=== PATIENT | female | born 1995 | race Caucasian/White ===

== ENCOUNTER 2020-07-13 11:48 | Emergency (ER) | payer OTHER ==
[2020-07-13 11:54] VITALS: BP 130/91; PULSE 85; TEMP 98.3; BMI 30.2
--- NOTE | 2020-07-13 12:13 | PDOC ---
History of Present Illness - General [place] [facility] [place]: CG TEST Time Seen by Provider: 07/13/20 12:02 History Source: Patient Exam Limitations: No Limitations - History of Present Illness Initial Comments: 07/13/20 12:09 Patient is a 24-year-old female who presents to the ED for a repeat beta-hCG after being seen 2 days ago for lower abdominal pain and . The patient states she was spotting initially 2 days ago but is no longer bleeding. She states she was told her beta-hCG was consistent with early as well as her ultrasound, but to return today for repeat beta-hCG for trending. The patient states that she still has similar suprapubic abdominal pain but denies any new pain. She denies any adnexal pain at this time. She denies any fevers or chills. Past History - Medical History Allergies/Adverse Reactions: Allergies Allergy/AdvReac Type Severity Reaction Status Date / Time iodine Allergy Severe Rash Verified 07/13/20 11:54 COPD: No - Reproductive History Is Patient Now?: No - Psycho-Social/Smoking History Smoking History: Never smoked Have you smoked in the past 12 months: No Information on smoking cessation initiated: Yes - Substance Abuse Hx (Audit-C & DAST Scrn) How often the patient has a drink containing alcohol: Never Score: In Men: 4 or > Positive; In Women: 3 or > Positive: 0 Screen Result (Pos requires Nsg. Audit-10AR): Negative In the last yr the pt used illegal drug/Rx for NonMed reason: No Score: Yes response is considered Positive: 0 Screen Result (Positive result requires Nsg. DAST-10): Negative Review of Systems - Review of Systems Comments:: 07/13/20 12:11 - Review of Systems Able to Perform ROS?: Yes Constitutional: No: Fever, Chills, Loss of Appetite, Night Sweats, Weakness HEENTM: No: Eye Pain, Vision changes, Ear Pain, Throat Pain, Throat Swelling, Mouth Pain, Difficulty Swallowing Respiratory: No: Cough, Shortness of Breath, Wheezing, Sputum Production Cardiac (ROS): No: Chest Pain, Chest Tightness, Palpitations, Irregular Heart Beat, Edema ABD/GI: No: Nausea, Vomiting, Abdominal Pain, Diarrhea; positive: Suprapubic abdominal pain, early ; repeat beta-hCG : No Dysuria, No Hematuria, No Frequency, No Urgency, No Vaginal Discharge/Pain Musculoskeletal: No: Muscle Pain, Back Pain, Joint Pain, Muscle Weakness, Neck Pain Integumentary: No: Lesions, Rash Neurological: No: Headache, Numbness, Tingling, Weakness, Speech Difficulties *Physical Exam - Vital Signs Last Vital Signs Temp Pulse Resp BP Pulse Ox 98.3 F 85 17 130/91 100 07/13/20 11:52 07/13/20 11:52 07/13/20 11:52 07/13/20 11:52 07/13/20 11:52 - Physical Exam 07/13/20 12:11 - Physical Exam General Appearance: Nourished, Appropriately Dressed, No Distress HEENT: EOMI, Normal Voice, Hearing Grossly Normal Neck: Supple, No Lymphadenopathy (R), No Lymphadenopathy (L), No Rigidity, No Decreased range of motion Respiratory/Chest: Lungs Clear, Normal Breath Sounds. No Respiratory Distress, No Accessory Muscle Use Cardiovascular: Regular Rhythm, Regular Rate, S1, S2 Gastrointestinal/Abdominal: Normal Bowel Sounds, Soft. Non-tender, No Guarding, No Rebound, No Rigidity; moderate suprapubic abdominal tenderness to palpation. No rebound, guarding or rigidity. No CVA tenderness bilaterally. Musculoskeletal: Normal Inspection. No Decreased Range of Motion Extremity: Normal Capillary Refill, Normal Inspection Integumentary: Normal Color, Dry. 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 Plan: -Beta-hCG quantitative ordered -Will reassess 07/13/20 14:14 The patient has been made aware that her beta hCG has doubled appropriately over 2 days. She has been made aware that this is normal and she should follow-up with [facility] for further evaluation and treatment. She will be referred to OB and states she has not made a follow-up appointment after being seen 2 days ago. She understands and agrees with this treatment plan has been given strict return precautions. She is stable for discharge. Discharge - Discharge Information Problems reviewed: Yes Clinical Impression/Diagnosis: Abdominal pain affecting Condition: Stable Disposition: HOME - Follow up/Referral Referrals: Claudia Huerta MD [Staff Physician] - 2 Days - Patient Discharge Instructions Patient Printed Discharge Instructions: DI for Abdominal Pain -- Early Additional Instructions: Get plenty of rest and drink plenty of fluids. Avoid any strenuous activity. Avoid anything in the vagina including sexual intercourse, tampons, douches or anything else. Be sure to follow-up with [facility] for further evaluation and treatment. Return to the emergency department for worsening abdominal pain vaginal bleeding, dizziness, visual changes or any other worsening symptoms. - Post Discharge Activity Work/Back to School Note: Back to Work
== END 2020-07-13 14:40 | disposition home or self-care (01) ==
LOC: JERFT 11:48
DX: O26.899 Other specified pregnancy related conditions, unspecified trimester (principal)
CPT/HCPCS: 36415; 84702; 99282-25

== ENCOUNTER 2021-02-20 14:27 | Inpatient (IN) | payer OTHER ==
[2021-02-20] MEDS ORDERED: LABETALOL HCL 5 MG/1 ML (100MG/20 ML VIAL) IVPB ONE (15:21)
[2021-02-20] MEDS ORDERED: METOCLOPRAMIDE HCL INJECTION 10 MG/2 ML VIAL IVPUSH ONE (15:24)
[2021-02-20] MEDS ORDERED: CITRIC ACID/SODIUM CITRATE 30 ML UNIT-DOSE CUP PO ONE (15:24)
[2021-02-20] MEDS ORDERED: ELECTROLYTE-148 SOLN 1,000 ML IV SCH (15:30)
[2021-02-20] MEDS ORDERED: MAGNESIUM 4GM/H20 - 4 GM/100 ML IVPB IVPB SCH (15:30)
[2021-02-20] MEDS ORDERED: MAGNESIUM SULFATE 20GM/500ML - 20 GM/500 ML INFUS.BAG IV SCH (15:30)
[2021-02-20 15:39] VITALS: BMI 34.7
[2021-02-20 15:45] LABS: BASO % 0.4 % (0-2.0); EOS % 1.1 % (0-4.5); HEMATOCRIT 33.4 % (32.4-45.2); HEMOGLOBIN 11.5 GM/dL (10.7-15.3); LYMPH % 25.6 % (8-40); MCH 31.1 pg (25.7-33.7); MCHC 34.5 g/dl (32.0-36.0); MEAN CELL VOLUME 90.1 fl (80-96); MEAN PLT VOLUME 8.2 fl (7.5-11.1); MONO % 5.7 % (3.8-10.2); NEUT % 67.2 % (42.8-82.8); PLATELET COUNT 338 K/MM3 (134-434); RBC 3.71 M/mm3 (3.60-5.2); RDW 13.5 % (11.6-15.6); RETICULOCYTES 1.96 % (0.5-1.5); WHITE BLOOD COUNT 9.2 K/mm3 (4.0-10.0)
[2021-02-20 16:05] LABS: EPI CELLS >36 /uL (0-25.1); HYALINE CASTS 1 /uL (0-3.1); PH,URINE 7.5 (5.0-8.0); URINE APPEARANCE CLEAR; URINE BACTERIA 1934 /uL (0-1359); URINE BILIRUBIN NEGATIVE (NEGATIVE); URINE COLOR YELLOW; URINE GLUCOSE (UA) NEGATIVE (NEGATIVE); URINE KETONE NEGATIVE (NEGATIVE); URINE LEUK ESTERASE 1+ (NEGATIVE); URINE NITRITE NEGATIVE (NEGATIVE); URINE PROTEIN NEGATIVE (NEGATIVE); URINE RBC 5 /uL (0-23.9); URINE UROBILINOGEN 0.2 mg/dL (0.2-1.0); URINE WBC 79 /uL (0-25.8)
[2021-02-20 16:11] LABS: CALCIUM 9.1 mg/dL (8.5-10.1); INR 0.83 (0.83-1.09); PROTHROMBIN TIME (PATIENT) 10.3 SEC (9.7-13.0)
[2021-02-20 16:13] LABS: BLOOD UREA NITROGEN 7.1 mg/dL (7-18)
[2021-02-20 16:14] LABS: ACTIVATED PTT 26.4 SECONDS (25.2-36.5)
[2021-02-20 16:15] LABS: URIC ACID 3.5 mg/dL (2.6-7.2)
[2021-02-20 16:16] LABS: CREATININE 0.7 mg/dL (0.55-1.3)
[2021-02-20 16:37] LABS: SYPHILIS W/ RPR CONF NON-REACTIVE (NONREACTIVE)
[2021-02-20] MEDS ORDERED: NALOXONE HCL 0.4 MG/ML VIAL IVPUSH PRN (16:47)
[2021-02-20] MEDS ORDERED: PHENYLEPHRINE HCL 10 MG/1 ML SINGLE DOSE VIAL ONE (17:00)
[2021-02-20] MEDS ORDERED: FENTANYL/BUPIVACAINE/NS/PF - PCEA - 50 ML DISP.SYRIN EP SCH (17:00)
[2021-02-20] MEDS ORDERED: morphine SULFATE/PF 0.5 MG/ML (2cc Syringe - QUVA) ONE (17:00)
[2021-02-20 17:06] LABS: HIV INTERPRETATION NEGATIVE (NEGATIVE)
[2021-02-20] MEDS ORDERED: ONDANSETRON 4 MG/2 ML VIAL ONE (17:34)
[2021-02-20] MEDS ORDERED: ceFAZolin SODIUM 1 GM VIAL ONE (17:34)
[2021-02-20] MEDS ORDERED: KETOROLAC TROMETHAMINE 30 MG/1 ML VIAL ONE (18:07)
[2021-02-20] MEDS ORDERED: ONDANSETRON 4 MG/2 ML VIAL IVPUSH PRN (18:11)
[2021-02-20] MEDS ORDERED: WITCH HAZEL 50% (TUCKS) 40 PAD/JAR PAD TP PRN (18:19)
[2021-02-20] MEDS ORDERED: BENZOCAINE 28 GM HEMORRHOIDAL OINTMENT PR PRN (18:19)
[2021-02-20] MEDS ORDERED: IBUPROFEN 800 MG/8 ML IJ IVPB PRN (18:19)
[2021-02-20] MEDS ORDERED: BENZOCAINE 20% 57 GM BOTTLE TP PRN (18:19)
[2021-02-20] MEDS ORDERED: oxyCODONE HCL 5 MG TABLET PO PRN (18:19)
[2021-02-20] MEDS ORDERED: METHYLERGONOVINE MALEATE 0.2 MG/1 ML AMP IM PRN (18:19)
[2021-02-20] MEDS ORDERED: LABETALOL HCL 200 MG TABLET (FP) PO PRN (18:21)
[2021-02-20] MEDS ORDERED: LABETALOL HCL 5 MG/1 ML (100MG/20 ML VIAL) IVPUSH ONE (18:23)
[2021-02-20] MEDS ORDERED: OXYTOCIN 20 UNITS in 0.9% NS 20 UNIT/1,000 ML INFUS.BAG IV SCH (18:30)
[2021-02-20] MEDS ORDERED: DEXTROSE 5%-LACTATED RINGERS 1,000 ML IV SCH (18:30)
[2021-02-20] MEDS ORDERED: OXYTOCIN 20 UNITS in 0.9% NS 20 UNIT/1,000 ML INFUS.BAG IV ONE (18:32)
[2021-02-20 18:59] LABS: CORD HCO3 25.7 mmHg (20-29); CORD pH 7.265 (7.14-7.44)
[2021-02-20 19:00] LABS: CORD BASE EXCESS 0.6 mmol/L (0-2); CORD HCO3 26.2 mmHg (20-29); CORD PCO2 45.4 mmHg (30-78); CORD pH 7.379 (7.14-7.44)
[2021-02-20] MEDS ORDERED: MAGNESIUM SULFATE 20GM/500ML - 20 GM/500 ML INFUS.BAG ONE (19:23)
[2021-02-20] MEDS: LABETALOL HCL 200 MG TABLET (FP) PO PRN (20:10)
[2021-02-20] MEDS ORDERED: IBUPROFEN 800 MG/8 ML IJ IVPB ONE (21:10)
[2021-02-21] MEDS ORDERED: CEFAZOLIN 1 GM/D5W 1 GM/50 ML BAG ONE ×2 (01:04→09:23)
[2021-02-21] MEDS: CEFAZOLIN 1 GM/D5W 1 GM/50 ML BAG IVPB SCH ×3 (01:30→16:39)
[2021-02-21] MEDS ORDERED: LABETALOL HCL 200 MG TABLET (FP) ONE (01:58)
[2021-02-21] MEDS: LABETALOL HCL 200 MG TABLET (FP) PO PRN (02:05)
[2021-02-21] MEDS: NIFEdipine E.R. 30 MG TABLET PO SCH ×2 (02:30→10:05)
[2021-02-21] MEDS ORDERED: NIFEdipine E.R. 30 MG TABLET ONE ×2 (02:37→09:23)
[2021-02-21] MEDS ORDERED: OXYTOCIN 20 UNITS in 0.9% NS 20 UNIT/1,000 ML INFUS.BAG IV SCH (08:45)
[2021-02-21 08:54] LABS: BASO % 0.3 % (0-2.0); EOS % 0.7 % (0-4.5); HEMOGLOBIN 8.2 GM/dL (10.7-15.3); LYMPH % 22.3 % (8-40); MCH 31.8 pg (25.7-33.7); MCHC 35.9 g/dl (32.0-36.0); MEAN CELL VOLUME 88.6 fl (80-96); MEAN PLT VOLUME 7.7 fl (7.5-11.1); MONO % 6.3 % (3.8-10.2); NEUT % 70.4 % (42.8-82.8); PLATELET COUNT 246 K/MM3 (134-434); RDW 13.5 % (11.6-15.6); WHITE BLOOD COUNT 9.2 K/mm3 (4.0-10.0)
[2021-02-21] MEDS: ENOXAPARIN NA (PORCINE) 40 MG/0.4 ML DISP.SYRIN SQ SCH (10:05)
[2021-02-21] MEDS ORDERED: oxyCODONE HCL 5 MG TABLET ONE (11:36)
[2021-02-21] MEDS ORDERED: ACETAMINOPHEN 325 MG TABLET (FP) ONE (11:36)
[2021-02-21] MEDS: ACETAMINOPHEN 325 MG TABLET (FP) PO PRN ×3 (11:40→20:42)
[2021-02-21] MEDS: oxyCODONE HCL 5 MG TABLET PO PRN (11:40)
[2021-02-21] MEDS: IBUPROFEN 600 MG TABLET (FP) PO PRN ×2 (16:39→20:41)
[2021-02-21] MEDS: SIMETHICONE 80 MG TAB.CHEW (FP) PO PRN ×2 (16:39→20:41)
[2021-02-21] MEDS: diphenhydrAMINE HCL 25 MG CAPSULE (FP) PO PRN (23:09)
[2021-02-22] MEDS: FERROUS SO4 325 MG TABLET (FP) PO SCH ×3 (01:29→21:17)
[2021-02-22] MEDS: IBUPROFEN 600 MG TABLET (FP) PO PRN ×3 (06:43→16:46)
[2021-02-22] MEDS: SIMETHICONE 80 MG TAB.CHEW (FP) PO PRN ×3 (06:43→16:46)
[2021-02-22] MEDS: ACETAMINOPHEN 325 MG TABLET (FP) PO PRN ×3 (06:44→16:46)
[2021-02-22] MEDS: ENOXAPARIN NA (PORCINE) 40 MG/0.4 ML DISP.SYRIN SQ SCH (09:42)
[2021-02-22] MEDS: PRENATAL VITAMINS W/ FOLIC ACID TABLET (FP) PO SCH (09:43)
[2021-02-22] MEDS: NIFEdipine E.R. 30 MG TABLET PO SCH (09:43)
[2021-02-22] MEDS: BISACODYL 10 MG SUPP.RECT PR PRN (09:43)
[2021-02-22 09:57] LABS: HEMATOCRIT 23.1 % (32.4-45.2); HEMOGLOBIN 8.1 GM/dL (10.7-15.3); MCH 31.5 pg (25.7-33.7); MCHC 34.9 g/dl (32.0-36.0); MEAN CELL VOLUME 90.2 fl (80-96); MEAN PLT VOLUME 7.5 fl (7.5-11.1); PLATELET COUNT 279 K/MM3 (134-434); RBC 2.56 M/mm3 (3.60-5.2); RDW 13.7 % (11.6-15.6); WHITE BLOOD COUNT 9.2 K/mm3 (4.0-10.0)
[2021-02-22] MEDS: LABETALOL HCL 200 MG TABLET (FP) PO PRN (18:05)
[2021-02-22] MEDS: oxyCODONE HCL 5 MG TABLET PO PRN (18:26)
[2021-02-23] MEDS: ACETAMINOPHEN 325 MG TABLET (FP) PO PRN ×2 (00:51→19:30)
[2021-02-23] MEDS: diphenhydrAMINE HCL 25 MG CAPSULE (FP) PO PRN (00:58)
[2021-02-23] MEDS: oxyCODONE HCL 5 MG TABLET PO PRN ×4 (01:51→19:31)
[2021-02-23 08:37] LABS: BASO % 0.4 % (0-2.0); EOS % 2.2 % (0-4.5); HEMATOCRIT 22.3 % (32.4-45.2); HEMOGLOBIN 7.9 GM/dL (10.7-15.3); LYMPH % 29.8 % (8-40); MCH 31.6 pg (25.7-33.7); MCHC 35.5 g/dl (32.0-36.0); MEAN CELL VOLUME 88.9 fl (80-96); MEAN PLT VOLUME 7.1 fl (7.5-11.1); MONO % 5.3 % (3.8-10.2); NEUT % 62.3 % (42.8-82.8); PLATELET COUNT 285 K/MM3 (134-434); RBC 2.51 M/mm3 (3.60-5.2); RDW 13.7 % (11.6-15.6); WHITE BLOOD COUNT 7.1 K/mm3 (4.0-10.0)
[2021-02-23] MEDS: ENOXAPARIN NA (PORCINE) 40 MG/0.4 ML DISP.SYRIN SQ SCH (09:28)
[2021-02-23] MEDS: LABETALOL HCL 200 MG TABLET (FP) PO PRN ×2 (09:29→16:17)
[2021-02-23] MEDS: SIMETHICONE 80 MG TAB.CHEW (FP) PO PRN ×3 (09:29→19:30)
[2021-02-23] MEDS: FERROUS SO4 325 MG TABLET (FP) PO SCH ×2 (09:29→21:41)
[2021-02-23] MEDS: NIFEdipine E.R. 30 MG TABLET PO SCH (09:29)
[2021-02-23] MEDS: PRENATAL VITAMINS W/ FOLIC ACID TABLET (FP) PO SCH (09:42)
[2021-02-23] MEDS: SENNOSIDES/DOCUSATE COMBO (SENNA PLUS) TABLET (UD) PO PRN (21:41)
[2021-02-24] MEDS: SIMETHICONE 80 MG TAB.CHEW (FP) PO PRN ×2 (01:36→20:53)
[2021-02-24] MEDS: ACETAMINOPHEN 325 MG TABLET (FP) PO PRN ×3 (01:36→17:46)
[2021-02-24] MEDS: oxyCODONE HCL 5 MG TABLET PO PRN ×2 (01:37→20:51)
[2021-02-24] MEDS: BISACODYL 10 MG SUPP.RECT PR PRN (09:27)
[2021-02-24] MEDS: PRENATAL VITAMINS W/ FOLIC ACID TABLET (FP) PO SCH (09:28)
[2021-02-24] MEDS: FERROUS SO4 325 MG TABLET (FP) PO SCH ×2 (09:28→21:12)
[2021-02-24] MEDS: NIFEdipine E.R. 30 MG TABLET PO SCH (09:28)
[2021-02-24] MEDS: IBUPROFEN 600 MG TABLET (FP) PO PRN ×2 (09:28→20:52)
[2021-02-24] MEDS: ENOXAPARIN NA (PORCINE) 40 MG/0.4 ML DISP.SYRIN SQ SCH (09:29)
[2021-02-24] MEDS: SENNOSIDES/DOCUSATE COMBO (SENNA PLUS) TABLET (UD) PO PRN (20:51)
[2021-02-25 06:24] VITALS: TEMP 98.3
[2021-02-25 06:41] LABS: BASO % 0.7 % (0-2.0); EOS % 3.3 % (0-4.5); HEMOGLOBIN 8.6 GM/dL (10.7-15.3); LYMPH % 31.9 % (8-40); MCH 31.2 pg (25.7-33.7); MCHC 34.3 g/dl (32.0-36.0); MEAN CELL VOLUME 90.8 fl (80-96); MEAN PLT VOLUME 7.1 fl (7.5-11.1); MONO % 6.5 % (3.8-10.2); NEUT % 57.6 % (42.8-82.8); PLATELET COUNT 341 K/MM3 (134-434); RBC 2.75 M/mm3 (3.60-5.2); RDW 13.5 % (11.6-15.6); WHITE BLOOD COUNT 6.4 K/mm3 (4.0-10.0)
[2021-02-25 07:18] VITALS: BP 137/98; PULSE 75
[2021-02-25] MEDS: ENOXAPARIN NA (PORCINE) 40 MG/0.4 ML DISP.SYRIN SQ SCH (09:24)
[2021-02-25] MEDS: NIFEdipine E.R. 30 MG TABLET PO SCH (09:25)
[2021-02-25] MEDS: ACETAMINOPHEN 325 MG TABLET (FP) PO PRN (09:25)
[2021-02-25] MEDS: PRENATAL VITAMINS W/ FOLIC ACID TABLET (FP) PO SCH (09:25)
[2021-02-25] MEDS: IBUPROFEN 600 MG TABLET (FP) PO PRN (09:25)
[2021-02-25] MEDS: FERROUS SO4 325 MG TABLET (FP) PO SCH (09:25)
== END 2021-02-25 13:25 | disposition home or self-care (01) | DRG 540 ==
LOC: JLDR 14:27 → J3W 02-21 14:36
PROVIDERS: ADMIT Obstetrics & Gynecology; ATTEND Obstetrics & Gynecology
PROC: 10D00Z1 Extraction of Products of Conception, Low, Open Approach (ICD-10-PCS; principal; 2021-02-20)
DX: O14.14 Severe pre-eclampsia complicating childbirth (principal); O99.02 Anemia complicating childbirth; D64.9 Anemia, unspecified; O16.5 Unspecified maternal hypertension, complicating the puerperium; Z3A.36 36 weeks gestation of pregnancy; Z37.0 Single live birth
CPT/HCPCS: 36415; 36600; 80048; 81003; 82570; 82803; 82977; 83010; 83735; 84156; 84450; 84460; 84550; 85025; 85027; 85045; 85610; 85730; 86780; 86850; 86900; 86901; 87389; 88307-TC; C9803; U0003; U0005